=== PATIENT | male | born 1990 | race Caucasian/White ===

== ENCOUNTER 2021-06-14 13:47 | Emergency (ER) | payer OTHER ==
[~2021-06-14] VITALS: Ht 175.3 cm; Wt 75.0 kg
[2021-06-14] MEDS ORDERED: KETOROLAC 60MG/2ML VIAL IM ONE (15:30)
[2021-06-14] MEDS ORDERED: LORAZEPAM 0.5MG TABLET PO ONE (15:30)
[2021-06-14] MEDS ORDERED: CLONIDINE 0.1MG TABLET PO ONE (15:30)
[2021-06-14 16:06] VITALS: BP 154/72
== END 2021-06-14 16:11 ==
LOC: ER 13:47
DX: F11.93 Opioid use, unspecified with withdrawal (principal); R03.0 Elevated blood-pressure reading, without diagnosis of hypertension
CPT/HCPCS: 96372; 99283; J1885